=== PATIENT | female | born 1970 | race Caucasian/White ===

== ENCOUNTER → 2022-09-18 07:53 | Outpatient (CLI) | payer MEDICAID, SELFPAY ==
--- NOTE | 2022-09-18 07:53 | FL_ITS ---
FINAL REPORT CLINICAL HISTORY: . DYSPHAGIA 59 SECONDS FLUORO TIME FINDINGS: ESOPHAGRAM HISTORY: Dysphagia. PROCEDURE: The patient ingested barium. Effervescent crystals were also administered. Spot and overhead films were obtained. FINDINGS: There is a largehiatal hernia. 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 There is mildgastroesophageal reflux. Peristalsis is normal. IMPRESSION: 1. Large hiatal hernia with mild gastroesophageal reflux. 2. Traction diverticulum. Films reviewed , interpreted and dictated by Dr. Roy Transcribed by Chuck Guillen PA-C. Reviewed, Interpreted and Dictated by Tr Ryo III, MD Transcribed by IRAIDA Doe Authenticated and . [facility]
== END ==
PROVIDERS: PCP Family Medicine; Visit Provider Surgery
DX: R13.10 Dysphagia, unspecified (principal)
CPT/HCPCS: 74220

== ENCOUNTER 2022-11-30 07:53 | Day surgery (SDC) | payer MEDICAID, SELFPAY ==
[2022-11-16 14:07] VITALS: BMI 33.3
--- NOTE | 2022-11-30 08:06 | EXP.ANES.CKL ---
[facility] Disclaimer: The information contained in this section may have been updated after the patient was seen, as this information can be updated by other users. Medical History (Updated 11/16/22 @ 14:03 by Cher Gamboa RN) History of gastroesophageal reflux (GERD) HLD (hyperlipidemia) Hypertension Hypothyroid Surgical History H/O gastric sleeve H/O: History of right hip replacement Family History (Updated 11/16/22 @ 14:05 by Cher Gamboa RN) Grandfather Cancer Mother Family history of cancer Other Thyroid cancer Social History (Updated 11/16/22 @ 14:05 by Cher Gamboa RN) Smoking Status: Never smoker alcohol intake: never substance use type: denies use current occupational status: unemployed Travel in the last 8 weeks: None household members: family housing: house lives independently: Yes marital status: single education level: high school service: No caffeine: Yes do you feel safe at home: Yes victim of physical abuse: No victim of emotional abuse: No victim of sexual abuse: No would you like helpful sources: No [facility] Anesthesia Checklist Patient Identification Patient Identification: Arm Band and Verbal (Name & ) Structural Data Admitted From: Home Planned Operative Procedure/s: EGD Consent for Planned Operative Procedure(s) Verified: Yes Verified Documents: Surgical Consent and History and Physical NPO Status Verified Time NPO: 00:00 Airway Assessment C-Spine Mobility Assessed: Yes TMJ Mobility Assessed: Yes Dentition: Good Dentition Neurological Assessment Level of Consciousness: Awake and Alert Psychosocial Assessment Concerns Regarding Surgery: hearing aids Anesthesia Plan Anesthesia Risk discussed: Yes ASA Class: II Anesthesia Type: MAC
[2022-11-30 08:09] VITALS: BP 134/80; PULSE 61; RESP 18; TEMP 36.7; O2SAT 99
[2022-11-30 08:58] VITALS: O2SAT 99
[2022-11-30 09:20] VITALS: BP 111/64; PULSE 56; RESP 16; TEMP 36.1; O2SAT 94
[2022-11-30 09:30] VITALS: BP 143/75; PULSE 56; RESP 18; TEMP 36.1; O2SAT 99
--- NOTE | 2022-11-30 09:30 | HMH.SCOPE ---
Procedure: Date: 11/30/22 Patient Date of :: 1970 Procedure Performed:: EGD & bougie dilation Indications:: Dysphagia, nausea, vomiting Performing Provider:: Alexandrea Mcgee MD Referring Provider:: Minoo Mcgee APRN Sedation:: propofol Procedure:: The gastroscope was gently passed through the incisoral orifice into the oral cavity and under direct visualization the esophagus was intubated. The endoscope was passed down the esophagus, through the stomach, and into the duodenum. Color, texture, mucosa, and anatomy of the esophagus, stomach, and duodenum were carefully examined with the scope. Findings:: Oropharynx: normal Esophagus: normal, distla 2+ esophagitis with scar, bougie dilation performed with 56F bougie EG Junction: intact at 40 cm Cardia: normal Fundus: normal Body: normal, gastric sleeve anatomy Antrum: normal Duodenal bulb: normal Duodenum (second and third portion): normal Impression: Distal esophagitis Gastric sleeve anatomy Dysphagia treated with bougie dilation Recommendations:: Eat slower with small meal portions. Nausea/vomiting most consistent with overflow filling of the reduced stomach capacity after gastric sleeve. Complications:: None Estimated blood obtained (mL): 0 Colonoscopy Component Colonoscopy Component Was a colonoscopy performed during today's procedure?: No
[2022-11-30 09:40] VITALS: BP 137/76; PULSE 53; RESP 18; TEMP 36.1; O2SAT 100
[2022-11-30 09:55] VITALS: BP 137/72; PULSE 57; RESP 18; TEMP 36.1; O2SAT 100
== END 2022-11-30 09:55 | disposition home or self-care (01) ==
PROVIDERS: PCP Family Medicine; Visit Provider Internal Medicine Gastroenterology
PROC: 0DJ08ZZ Inspection of Upper Intestinal Tract, Via Natural or Artificial Opening Endoscopic (ICD-10-PCS; CPT 43235; principal; 2022-11-30 09:00)
DX: K20.90 Esophagitis, unspecified without bleeding (principal); Z98.84 Bariatric surgery status; R13.10 Dysphagia, unspecified; R11.2 Nausea with vomiting, unspecified
CPT/HCPCS: 43248

== ENCOUNTER → 2022-12-06 14:24 | Outpatient (POV) | payer MEDICAID, SELFPAY | PROVIDERS: Visit Provider Specialist/Technologist | DX: Z00.00 Encounter for general adult medical examination without abnormal findings (principal) ==

== ENCOUNTER 2024-12-01 11:12 | Day surgery (SDC) | payer MEDICAID, SELFPAY ==
[2024-12-01 12:17] VITALS: BP 183/90; PULSE 61; RESP 18; TEMP 36.2; O2SAT 98; BMI 37.2
[2024-12-01] MEDS: LACTATED RINGERS 1000ML 1,000 ML 50 ML IV (12:28)
--- NOTE | 2024-12-01 12:34 | P.PNANES_ITS ---
[facility] Disclaimer: The information contained in this section may have been updated after the patient was seen, as this information can be updated by other users. Medical History History of gastroesophageal reflux (GERD) Hypothyroid HLD (hyperlipidemia) Hypertension Surgical History History of left hip replacement History of right hip replacement H/O gastric sleeve H/O: Family History Grandfather Cancer Mother Family history of cancer Other Thyroid cancer Social History Smoking Status: Never smoker alcohol intake: never substance use type: denies use current occupational status: unemployed Travel in the last 8 weeks?: None household members: family housing: house lives independently: Yes marital status: single education level: high school service: No caffeine: Yes do you feel safe at home: Yes victim of physical abuse: No victim of emotional abuse: No victim of sexual abuse: No would you like helpful sources: No Have you lived/traveled outside [place] in past 30 days?: No Contact w/someone who lives/traveled outside [place] past 30 days?: No Exposure to someone with infectious disease in past 14 days?: No Do you have a fever (greater than 100.4 F or 38 C)?: No Have you tested positive for COVID-19?: No Exposed to someone with COVID-19 in past 14 days?: No Do you have a sore throat?: No Do you have a cough?: No Do you have any weakness?: No Do you have any diarrhea?: No Are you experiencing any unusual bleeding?: No Do you have any muscle aches/pain?: No Do you have any abdominal pain?: No Are you experiencing loss of taste or smell?: No [facility] Anesthesia Checklist Patient Identification Patient Identification: Arm Band and Verbal (Name & ) Structural Data Admitted From: Home Planned Operative Procedure/s: colonscopy Consent for Planned Operative Procedure(s) Verified: Yes Verified Documents: Surgical Consent and History and Physical NPO Status Verified Time NPO: 00:00 Additional verifications Anesthesia Reactions: No Airway Assessment Mallampati Score:: Class II Neurological Assessment Level of Consciousness: Awake, Alert and Appropriate Hx Seizures: No Anesthesia Plan Anesthesia Risk discussed: Yes Anesthesia Plan: Verified ASA Class: II Anesthesia Type: MAC
--- NOTE | 2024-12-01 13:32 | EXP.HP ---
History of Present Illness *Admission Date: 12/01/24 *Reason for visit:: Generalized abdominal discomfort and constipation *History of present illness: Mrs. Stiles is a 54-year-old female who is here for diagnostic colonoscopy secondary to generalized abdominal pain, constipation and bloating. Her grandfather had colon cancer in his 70s and her last colonoscopy was 6 years ago. The examination is deemed medically necessary for diagnostic colonoscopy. The patient has been seen, interviewed and examined prior to the procedure by both myself and the anesthesia provider. [facility] Disclaimer: The information contained in this section may have been updated after the patient was seen, as this information can be updated by other users. Medical History History of gastroesophageal reflux (GERD) Hypothyroid HLD (hyperlipidemia) Hypertension Surgical History History of left hip replacement History of right hip replacement H/O gastric sleeve H/O: Family History Grandfather Cancer Mother Family history of cancer Other Thyroid cancer Social History Smoking Status: Never smoker alcohol intake: never substance use type: denies use current occupational status: unemployed Travel in the last 8 weeks?: None household members: family housing: house lives independently: Yes marital status: single education level: high school service: No caffeine: Yes do you feel safe at home: Yes victim of physical abuse: No victim of emotional abuse: No victim of sexual abuse: No would you like helpful sources: No Have you lived/traveled outside [place] in past 30 days?: No Contact w/someone who lives/traveled outside [place] past 30 days?: No Exposure to someone with infectious disease in past 14 days?: No Do you have a fever (greater than 100.4 F or 38 C)?: No Have you tested positive for COVID-19?: No Exposed to someone with COVID-19 in past 14 days?: No Do you have a sore throat?: No Do you have a cough?: No Do you have any weakness?: No Do you have any diarrhea?: No Are you experiencing any unusual bleeding?: No Do you have any muscle aches/pain?: No Do you have any abdominal pain?: No Are you experiencing loss of taste or smell?: No Other Medical History Have you received the Flu Vaccine for this season: Yes Review of Systems Review of Systems Review of systems (narrative): Negative *Cardiovascular Comments: Negative *Gastrointestinal Comments: Negative *Genitourinary Comments: Negative *Musculoskeletal Comments: Negative *Neurologic Comments: Negative Meds Home Medications and Allergies Home Medications ?Medication ?Instructions ?Recorded ?Confirmed ?Type fluoxetine 40 mg capsule 40 mg PO DAILY mood 08/06/17 12/01/24 History rosuvastatin 40 mg tablet 40 mg PO DAILY Cholesterol 08/06/17 12/01/24 History cholecalciferol (vitamin D3) 1,250 1,250 mcg PO DAILY Supplement 10/05/22 12/01/24 History mcg (50,000 unit) capsule fenofibrate 160 mg tablet 160 mg PO DAILY cholesteo 10/05/22 12/01/24 History ferrous sulfate 325 mg (65 mg 325 mg PO DAILY Supplement 11/16/22 12/01/24 History iron) tablet (FeroSul) hydrochlorothiazide 25 mg tablet 25 mg PO DAILY HTN 11/16/22 12/01/24 History aspirin 81 mg tablet,delayed 81 mg PO DAILY 02/13/24 12/01/24 History release carvedilol 12.5 mg tablet 12.5 mg PO BID 02/13/24 12/01/24 History ibuprofen 800 mg tablet 800 mg PO TID 02/13/24 12/01/24 History levothyroxine 125 mcg tablet 125 mcg PO DAILY 02/13/24 12/01/24 History lisinopril 20 mg tablet 20 mg PO DAILY 02/13/24 12/01/24 History omeprazole 40 mg capsule,delayed 40 mg PO DAILY 02/13/24 12/01/24 History release plecanatide 3 mg tablet (Trulance) 3 mg PO DAILY #90 tabs 09/25/24 12/01/24 Rx polyethylene glycol 3350 17 17 g PO DAILY 09/25/24 12/01/24 History gram/dose oral powder (Miralax) New Prescriptions to Start Prescriptions: Allergies Allergy/AdvReac Type Severity Reaction Status Date / Time No Known Allergies Allergy Verified 12/01/24 12:19 Exam Data for Last 24 hours Vital signs and Labs for Last 24 Hours: Temp Pulse Resp BP Pulse Ox O2 Del Method 97.2 F L 61 18 183/90 H 98 Room Air 12/01/24 12:17 12/01/24 12:17 12/01/24 12:17 12/01/24 12:17 12/01/24 12:17 12/01/24 12:17 I & O for Last 24 hours: Intake & Output 11/28/24 11/29/24 11/30/24 12/01/24 23:59 23:59 23:59 23:59 Weight 202 lb 3.998 oz *Routine HEENT Exam Head: Present normocephalic Eye: Present EOMI and PERRL ENT: Present mucous membranes moist *Routine Neck Exam Neck: Present supple *Routine Respiratory Exam Respiratory: Present CTA bilaterally *Routine Cardiovascular Exam Cardiovascular: Present RRR *Routine Abdominal Exam Abdominal: Present soft and normoactive bowel sounds; Absent tenderness *Routine Rectal Exam Rectal:: deferred *Routine Genitalia Exam Genitalia:: deferred *Routine Extremities Exam Extremities: Absent cyanosis, clubbing or edema *Routine Skin Exam Skin: Present warm; Absent rash *Routine Neurological Exam Neurological: Present alert and oriented X3 Assessment and Plan *Assessment and plan (1) Chronic constipation: Status: Acute Category: Medical Code(s): K59.09 - Other constipation (2) Generalized abdominal pain: Status: Acute Category: Medical Code(s): R10.84 - Generalized abdominal pain Plan A/P: 1. Generalized abdominal pain and discomfort with constipation and bloating is the preprocedural diagnosis. The patient will be anesthetized/sedated using MAC sedation. The patient has been seen and examined. Cardiac and lung assessment prior to the examination is stable. Proceed with planned diagnostic colonoscopy.
--- NOTE | 2024-12-01 13:54 | HMH.PROCNOTE ---
[facility] Procedure Note Date: 12/01/24 Time: 13:54 Procedure Note:: Colonoscopy Procedure Report: Colonoscopy with cold snare polypectomy Endoscopist: Dashawn Bxo II, MD Referring physician: Davis Pickett MD Date of Procedure: December 01, 2024 Equipment: Olympus 190 variable stiffness pediatric colonoscope Sedation: MAC sedation Indication: Mrs. Stiles is a 54-year-old female with generalized abdominal discomfort and bloating. She does have a history of IBS?constipation. The patient did have a colonoscopy 6 years ago. She reports no rectal bleeding, weight loss or family history of colon cancer. She does primarily report left lower quadrant abdominal pain off and on. Procedure: Prior to the procedure, a history and physical exam was performed, and patient's medications and allergies were reviewed. The risks, benefits and alternatives of the sedation and procedure were discussed with the patient. All questions were answered and informed consent was obtained. The patient was brought to the procedure room. Patient identification and proposed procedure were verified by the physician and the nurse. The patient was placed in a left lateral decubitus position and the scope was passed under direct vision. Throughout the procedure, the patient's blood pressure, pulse, and oxygen saturations were monitored continuously. The colonoscopy was accomplished without difficulty. The patient tolerated the procedure well. Findings: On digital rectal examination there was normal rectal tone. There were no external hemorrhoids. The colonoscope was introduced through the anal canal to the rectum and advanced to the cecum. The ileocecal valve and appendiceal orifice were identified. The scope was advanced a short distance into the ileum which appeared grossly normal. The scope was then withdrawn into the colon. There was a single 7-8 mm polyp in the sigmoid colon removed via cold snare polypectomy. The remaining cecum, ascending, transverse, descending, sigmoid and rectum were grossly normal. There were a few diverticuli in the sigmoid colon. There were no other mucosal abnormalities identified. Upon retroflexion within the rectum there were grade 1-2 internal hemorrhoids. The preparation was good throughout with Brogue Preparation Score of 8 out of 9. The cecal time was 12 minutes. Impression: 1. Sigmoid colon polyp (7 to 8 mm) 2. Mild sigmoid diverticulosis 3. Grade 1-2 internal hemorrhoids Plan: I will follow-up the polyp histology and recommend repeat surveillance colonoscopy again in 5 years. I would continue dietary measures and fiber bowel regimen. I would consider treatment for visceral sensitivity.
[2024-12-01 13:58] VITALS: BP 100/53; PULSE 55; RESP 15; TEMP 36.6; O2SAT 100
[2024-12-01 14:08] VITALS: BP 126/79; PULSE 63; RESP 15; TEMP 36.6; O2SAT 100
[2024-12-01 14:18] VITALS: BP 139/69; PULSE 54; RESP 17; TEMP 36.6; O2SAT 100
[2024-12-01 14:28] VITALS: BP 148/79; PULSE 54; RESP 18; TEMP 36.6; O2SAT 100
== END 2024-12-01 14:28 | disposition home or self-care (01) ==
PROVIDERS: PCP Family Medicine; Visit Provider Internal Medicine Gastroenterology
PROC: 0DJD8ZZ Inspection of Lower Intestinal Tract, Via Natural or Artificial Opening Endoscopic (ICD-10-PCS; CPT 45378; principal; 2024-12-01 13:00)
DX: D12.5 Benign neoplasm of sigmoid colon (principal); R10.84 Generalized abdominal pain; K58.1 Irritable bowel syndrome with constipation; E03.9 Hypothyroidism, unspecified; K57.30 Diverticulosis of large intestine without perforation or abscess without bleeding; K64.1 Second degree hemorrhoids; R14.0 Abdominal distension (gaseous); K21.9 Gastro-esophageal reflux disease without esophagitis; E78.5 Hyperlipidemia, unspecified; I10 Essential (primary) hypertension; Z98.84 Bariatric surgery status; Z56.0 Unemployment, unspecified; Z80.0 Family history of malignant neoplasm of digestive organs; Z79.899 Other long term (current) drug therapy; Z79.82 Long term (current) use of aspirin; Z79.890 Hormone replacement therapy; Z79.1 Long term (current) use of non-steroidal anti-inflammatories (NSAID)
CPT/HCPCS: 45385; J2003; J2704; J7120